=== PATIENT | male | born 1965 | race Caucasian/White ===

== ENCOUNTER 2017-04-01 18:49 | Emergency (ER) | payer OTHER ==
[~2017-04-01] VITALS: Ht 182.9 cm; Wt 118.3 kg
[~2017-04-01 18:49] MED LIST: ULTRACET1 TABLET PO
[2017-04-01] MEDS ORDERED: OXYCODONE-APAP1 EACH PO (20:09)
[2017-04-01] MEDS ORDERED: MORPHINE SULFAT30 M2 PO (20:09)
[2017-04-01] MEDS ORDERED: LYRICA150 MG PO ×2 (20:10)
[2017-04-01] MEDS ORDERED: LISINOPRIL20 MG PO (20:11)
[2017-04-01] MEDS ORDERED: ESOMEPRAZOLE MA20 MG PO (20:41)
[2017-04-01] MEDS ORDERED: VITAMIN D5000 UNI1 PO (20:42)
[2017-04-01] MEDS ORDERED: VITAMIN E1000 UNI1 PO (20:42)
[2017-04-01] MEDS ORDERED: LO-DOSE ASPIRIN81 M2 PO (20:42)
[2017-04-01 20:54] LABS: HEMATOCRIT 43.4 % (38.0-50.0); MCHC 33.9 G/DL (30.0-36.0); MCV 85.6 FL (86-99); MEAN PLAT.VOLUME 10.7 uM^3 (9.0-12.4); PLATELET COUNT 188 K/uL (156-360); RBC DIS.WIDTH-CV 13.6 % (11.8-14.6); RBC DIS.WIDTH-SD 42.3 % (39-53); RED BLOOD COUNT 5.07 M/uL (4.00-5.50); WHITE BLOOD COUNT 9.7 K/uL (4.1-10.2)
[2017-04-01 20:59] LABS: CHLORIDE 100 mEq/L (99-109); POTASSIUM 3.8 mEq/L (3.7-5.4); SODIUM 136 mEq/L (136-147)
[2017-04-01 21:00] LABS: GLUCOSE 168 mg/dL (70-99)
[2017-04-01 21:02] LABS: ANION GAP 11 MEQ/L (2-14)
[2017-04-01 21:04] LABS: GFR ESTIMATE (CALCULATED) > 59 mL/min/
[2017-04-01 21:05] LABS: UREA NITROGEN (BUN) 18 mg/dL (9-23)
[2017-04-01] MEDS ORDERED: AUGMENTIN875 MG PO (21:10)
[2017-04-01 22:12] VITALS: BP 145/84
== END 2017-04-01 22:14 | disposition home or self-care (01) ==
LOC: EME 18:49
PROVIDERS: Nurse Practitioner Family
DX: S90.822A Blister (nonthermal), left foot, initial encounter (principal); S90.821A Blister (nonthermal), right foot, initial encounter; L03.116 Cellulitis of left lower limb; L03.115 Cellulitis of right lower limb; X58.XXXA Exposure to other specified factors, initial encounter; Y93.01 Activity, walking, marching and hiking; Y92.832 Beach as the place of occurrence of the external cause; I10 Essential (primary) hypertension; E78.5 Hyperlipidemia, unspecified; G62.9 Polyneuropathy, unspecified; M10.9 Gout, unspecified; Z98.890 Other specified postprocedural states
CPT/HCPCS: 73630; 80048; 85027; 87040; 87801; 99281; 99284

== ENCOUNTER 2017-08-18 18:43 | Emergency (ER) | payer OTHER ==
[~2017-08-18] VITALS: Ht 182.9 cm; Wt 118.8 kg
[~2017-08-18 18:43] MED LIST changes: +AUGMENTIN875 MG PO; +ESOMEPRAZOLE MA20 MG PO; +LISINOPRIL20 MG PO; +LO-DOSE ASPIRIN81 M2 PO; +LYRICA150 MG PO; +MORPHINE SULFAT30 M2 PO; +OXYCODONE-APAP1 EACH PO; +VITAMIN D5000 UNI1 PO; +VITAMIN E1000 UNI1 PO
[2017-08-18 19:34] LABS: HEMATOCRIT 43.8 % (38.0-50.0); MCHC 34.5 G/DL (30.0-36.0); MCV 86.9 FL (86-99); MEAN PLAT.VOLUME 10.5 uM^3 (9.0-12.4); PLATELET COUNT 154 K/uL (156-360); RBC DIS.WIDTH-CV 13.6 % (11.8-14.6); RBC DIS.WIDTH-SD 42.5 % (39-53); RED BLOOD COUNT 5.04 M/uL (4.00-5.50); WHITE BLOOD COUNT 14.5 K/uL (4.1-10.2)
[2017-08-18 19:52] LABS: CHLORIDE 100 mEq/L (99-109); POTASSIUM 3.9 mEq/L (3.7-5.4); SODIUM 135 mEq/L (136-147)
[2017-08-18 19:54] LABS: GLUCOSE 146 mg/dL (70-99)
[2017-08-18 19:55] LABS: ANION GAP 8 MEQ/L (2-14)
[2017-08-18 19:56] LABS: TOTAL BILIRUBIN 1.2 mg/dL (0.0-1.0)
[2017-08-18 19:58] LABS: ALKALINE PHOSPHATASE 74 IU/L (3-129); GFR ESTIMATE (CALCULATED) > 59 mL/min/
[2017-08-18 19:59] LABS: UREA NITROGEN (BUN) 14 mg/dL (9-23)
[2017-08-18] MEDS ORDERED: BACTRIM,SEPT1 TABLET PO (22:31)
[2017-08-18] MEDS ORDERED: MOTRIN800 MG PO (22:38)
[2017-08-18 22:58] VITALS: BP 132/62
== END 2017-08-18 22:59 | disposition home or self-care (01) ==
LOC: EME 18:43
PROVIDERS: Nurse Practitioner Family
DX: S91.341A Puncture wound with foreign body, right foot, initial encounter (principal); L03.115 Cellulitis of right lower limb; L03.031 Cellulitis of right toe; F10.21 Alcohol dependence, in remission; Z53.20 Procedure and treatment not carried out because of patient's decision for unspecified reasons; G62.9 Polyneuropathy, unspecified; M10.9 Gout, unspecified; I10 Essential (primary) hypertension; E78.5 Hyperlipidemia, unspecified
CPT/HCPCS: 73660; 80053; 83605; 85027; 87040; 87070; 87075; 87205; 99281; 99285; J2543; J3370; J7030

== ENCOUNTER 2017-10-09 09:14 | Inpatient (IN) | payer OTHER ==
[~2017-10-09] VITALS: Ht 182.9 cm; Wt 117.0 kg
[~2017-10-09 09:14] MED LIST changes: +BACTRIM,SEPT1 TABLET PO; +MOTRIN800 MG PO
[2017-10-09 10:09] LABS: HEMATOCRIT 38.1 % (38.0-50.0); MCH 29.7 PG (29.0-34.0); MCHC 34.1 G/DL (30.0-36.0); PLATELET COUNT 198 K/uL (156-360); RBC DIS.WIDTH-CV 12.8 % (11.8-14.6); RED BLOOD COUNT 4.38 M/uL (4.00-5.50); WHITE BLOOD COUNT 18.4 K/uL (4.1-10.2)
[2017-10-09 10:24] LABS: ALBUMIN 3.6 g/dL (3.2-4.8); CHLORIDE 101 mEq/L (99-109); SODIUM 132 mEq/L (136-147)
[2017-10-09 10:26] LABS: GLUCOSE 378 mg/dL (70-99)
[2017-10-09 10:28] LABS: TOTAL BILIRUBIN 0.4 mg/dL (0.0-1.0)
[2017-10-09 10:30] LABS: ALKALINE PHOSPHATASE 102 IU/L (3-129); CREATININE 1.2 mg/dL (0.6-1.3); GFR ESTIMATE (CALCULATED) > 59 mL/min/ (58.99-99999)
[2017-10-09 10:31] LABS: UREA NITROGEN (BUN) 15 mg/dL (9-23)
[2017-10-09 10:32] LABS: AST (GOT) 12 IU/L (2-34)
[2017-10-09 10:33] LABS: ALT (GPT) 17 IU/L (3-49)
[2017-10-09] MEDS ORDERED: LEXAPRO20 MG PO (12:58)
[2017-10-09] MEDS ORDERED: PRINIVIL20 MG PO (12:58)
[2017-10-09] MEDS ORDERED: NEXIUM20 MG PO (12:59)
[2017-10-09] MEDS ORDERED: ALLOPURINOL300 MG PO (12:59)
[2017-10-09] MEDS ORDERED: LIPITOR10 MG PO (13:00)
[2017-10-09] MEDS ORDERED: OMEGA DHA92 MG PO (13:03)
[2017-10-09 13:49] LABS: URIC ACID 3.4 mg/dL (3.1-9.2)
[2017-10-09 14:57] LABS: HEMOGLOBIN A1c (GLYCOHEMOGLOB) 6.7 % (Below 5.7)
[2017-10-09] MEDS ORDERED: IBUPROFEN200 M1 PO (19:29)
[2017-10-09 19:43] VITALS: BP 132/60
[2017-10-09 23:22] VITALS: BP 128/61
[2017-10-10 03:16] VITALS: BP 145/69
[2017-10-10 05:43] LABS: HEMATOCRIT 34.9 % (38.0-50.0); HEMOGLOBIN 11.7 G/DL (12.5-16.6); MCHC 33.5 G/DL (30.0-36.0); MCV 86.6 FL (86-99); PLATELET COUNT 215 K/uL (156-360); RBC DIS.WIDTH-CV 12.9 % (11.8-14.6); RBC DIS.WIDTH-SD 40.9 % (39-53); RED BLOOD COUNT 4.03 M/uL (4.00-5.50); WHITE BLOOD COUNT 17.4 K/uL (4.1-10.2)
[2017-10-10 05:54] LABS: CHLORIDE 100 MEQ/L (99-109); GFR ESTIMATE (CALCULATED) > 59 mL/min/ (58.99-99999); POTASSIUM 3.7 MEQ/L (3.7-5.4); SODIUM 136 MEQ/L (136-147); UREA NITROGEN (BUN) 12 mg/dL (9-23)
[2017-10-10 05:57] LABS: GLUCOSE 184 mg/dL (70-99)
[2017-10-10 07:55] VITALS: BP 120/68
[2017-10-10 11:16] LABS: CRYSTALS NO CRYSTALS SEEN
[2017-10-10 11:30] VITALS: BP 147/67
[2017-10-10 12:54] LABS: URIC ACID 3.4 mg/dL (3.1-9.2)
[2017-10-10 15:49] VITALS: BP 129/61
[2017-10-10 19:50] VITALS: BP 138/65
[2017-10-10 23:37] VITALS: BP 152/69
[2017-10-11] VITALS (7 sets, daily range): BP systolic 141–185; BP diastolic 70–79
[2017-10-11 06:10] LABS: HEMATOCRIT 36.6 % (38.0-50.0); HEMOGLOBIN 12.4 G/DL (12.5-16.6); MCHC 33.9 G/DL (30.0-36.0); MCV 88.6 FL (86-99); PLATELET COUNT 222 K/uL (156-360); RBC DIS.WIDTH-CV 13.1 % (11.8-14.6); RBC DIS.WIDTH-SD 42.6 % (39-53); RED BLOOD COUNT 4.13 M/uL (4.00-5.50); WHITE BLOOD COUNT 13.8 K/uL (4.1-10.2)
[2017-10-11 06:22] LABS: C-REACTIVE PROTEIN > 240.0 MG/L (0-10); CHLORIDE 100 MEQ/L (99-109); GFR ESTIMATE (CALCULATED) > 59 mL/min/ (58.99-99999); GLUCOSE 161 mg/dL (70-99); POTASSIUM 3.7 MEQ/L (3.7-5.4); SODIUM 136 MEQ/L (136-147); UREA NITROGEN (BUN) 16 mg/dL (9-23)
[2017-10-11 08:33] LABS: ERTH.SED.RATE 44 MM/HR (0-20)
[2017-10-12 03:29] VITALS: BP 141/75
[2017-10-12 06:19] LABS: HEMATOCRIT 34.8 % (38.0-50.0); HEMOGLOBIN 11.4 G/DL (12.5-16.6); MCHC 32.8 G/DL (30.0-36.0); MCV 88.5 FL (86-99); PLATELET COUNT 220 K/uL (156-360); RBC DIS.WIDTH-CV 12.9 % (11.8-14.6); RBC DIS.WIDTH-SD 41.7 % (39-53); RED BLOOD COUNT 3.93 M/uL (4.00-5.50); WHITE BLOOD COUNT 9.3 K/uL (4.1-10.2)
[2017-10-12 06:39] LABS: CHLORIDE 105 MEQ/L (99-109); CREATININE 0.9 MG/DL (0.6-1.3); GFR ESTIMATE (CALCULATED) > 59 mL/min/ (58.99-99999); GLUCOSE 132 mg/dL (70-99); SODIUM 142 MEQ/L (136-147); UREA NITROGEN (BUN) 13 mg/dL (9-23)
[2017-10-12 07:45] VITALS: BP 160/77
[2017-10-12 11:30] VITALS: BP 135/76
[2017-10-12 16:00] VITALS: BP 163/84
[2017-10-12 19:41] VITALS: BP 182/81
[2017-10-12 23:45] VITALS: BP 149/69
[2017-10-13 04:19] VITALS: BP 173/89
[2017-10-13 06:42] LABS: HEMATOCRIT 34.7 % (38.0-50.0); HEMOGLOBIN 11.6 G/DL (12.5-16.6); MCH 29.1 PG (29.0-34.0); MCHC 33.4 G/DL (30.0-36.0); PLATELET COUNT 242 K/uL (156-360); RBC DIS.WIDTH-CV 12.6 % (11.8-14.6); RBC DIS.WIDTH-SD 40.1 % (39-53); RED BLOOD COUNT 3.99 M/uL (4.00-5.50)
[2017-10-13 07:07] LABS: CHLORIDE 104 MEQ/L (99-109); CREATININE 0.9 MG/DL (0.6-1.3); GFR ESTIMATE (CALCULATED) > 59 mL/min/ (58.99-99999); GLUCOSE 130 mg/dL (70-99); POTASSIUM 3.6 MEQ/L (3.7-5.4); SODIUM 139 MEQ/L (136-147); UREA NITROGEN (BUN) 12 mg/dL (9-23)
[2017-10-13 09:08] VITALS: BP 176/77
[2017-10-13 16:32] VITALS: BP 157/78
[2017-10-13 20:00] VITALS: BP 158/73
[2017-10-13 23:32] VITALS: BP 175/97
[2017-10-14 06:26] LABS: HEMATOCRIT 35.2 % (38.0-50.0); HEMOGLOBIN 11.9 G/DL (12.5-16.6); MCH 29.6 PG (29.0-34.0); MCHC 33.8 G/DL (30.0-36.0); MCV 87.6 FL (86-99); PLATELET COUNT 235 K/uL (156-360); RBC DIS.WIDTH-CV 12.7 % (11.8-14.6); RBC DIS.WIDTH-SD 40.7 % (39-53); RED BLOOD COUNT 4.02 M/uL (4.00-5.50)
[2017-10-14 06:45] LABS: CHLORIDE 101 MEQ/L (99-109); CREATININE 0.9 MG/DL (0.6-1.3); GFR ESTIMATE (CALCULATED) > 59 mL/min/ (58.99-99999); GLUCOSE 126 mg/dL (70-99); SODIUM 137 MEQ/L (136-147); UREA NITROGEN (BUN) 12 mg/dL (9-23)
[2017-10-14 08:14] VITALS: BP 168/81
[2017-10-14 15:48] VITALS: BP 157/80
[2017-10-14 23:47] VITALS: BP 145/67
[2017-10-15 08:41] VITALS: BP 183/101
[2017-10-15 09:14] VITALS: BP 162/82
[2017-10-15] MEDS ORDERED: CILOSTAZOL100 MG PO (14:18)
[2017-10-15] MEDS ORDERED: HYDROCHLOROTH12.5 M3 PO (14:19)
[2017-10-15] MEDS ORDERED: METFORMIN HCL500 MG PO (14:20)
[2017-10-15] MEDS ORDERED: CEFTRIAXONE2 G1 IV (14:20)
[2017-10-15] MEDS ORDERED: GLUCOMETER MC (14:25)
[2017-10-15] MEDS ORDERED: 1ST TIER UNILE1 EAC1 MC (14:27)
== END 2017-10-15 16:00 | disposition home health service (06) | DRG 617 ==
LOC: EME 09:14 → EDOF 12:07 → 4SOUTH 12:07 → ENRESERV 12:22 → 4SOUTH 18:50
PROVIDERS: Family Medicine; Internal Medicine; Podiatrist Foot & Ankle Surgery
PROC: 0S9 Lower Joints, Drainage (ICD-10-PCS; principal; 2017-10-10)
PROC: 0QBQ3ZX Excision of Right Toe Phalanx, Percutaneous Approach, Diagnostic (ICD-10-PCS; principal; 2017-10-10)
PROC: 0JBQ0ZZ Excision of Right Foot Subcutaneous Tissue and Fascia, Open Approach (ICD-10-PCS; principal; 2017-10-10)
PROC: 0Y6P0Z0 Detachment at Right 1st Toe, Complete, Open Approach (ICD-10-PCS; 2017-10-12)
PROC: 0LBV0ZZ Excision of Right Foot Tendon, Open Approach (ICD-10-PCS; 2017-10-12)
DX: E11.69 Type 2 diabetes mellitus with other specified complication (principal); M86.671 Other chronic osteomyelitis, right ankle and foot; E11.621 Type 2 diabetes mellitus with foot ulcer; L97.514 Non-pressure chronic ulcer of other part of right foot with necrosis of bone; E11.628 Type 2 diabetes mellitus with other skin complications; L03.115 Cellulitis of right lower limb; E11.51 Type 2 diabetes mellitus with diabetic peripheral angiopathy without gangrene; E11.42 Type 2 diabetes mellitus with diabetic polyneuropathy; M1A.9XX1 Chronic gout, unspecified, with tophus (tophi); B95.4 Other streptococcus as the cause of diseases classified elsewhere; I10 Essential (primary) hypertension; E78.5 Hyperlipidemia, unspecified; I77.1 Stricture of artery; G89.29 Other chronic pain; M54.5 Low back pain; E66.9 Obesity, unspecified; Z68.34 Body mass index [BMI] 34.0-34.9, adult; Z87.891 Personal history of nicotine dependence
CPT/HCPCS: 73630; 73720; 80048; 80053; 80202; 82948; 83036; 84550; 85027; 85651; 86140; 87040; 87070; 87075; 87077; 87186; 87205; 87801; 88304; 88305; 88311; 89051; 93926; 93971; 94799; 99281; 99285; J0290; J0360; J1650; J1815; J2250; J2270; J2543; J3370; J7030; J7050; S0020